=== PATIENT | male | born 1935 | race Caucasian/White ===

== ENCOUNTER → 2017-05-01 | Outpatient (CLI) | payer MEDICARE ==
[~2017-05-01] MED LIST: ACETAMINOPHEN W1 TA6 PO; ANTIVERT 12.512.5 MG PO; ASPIRIN E.C. 8181 MG PO; ATIVAN 1MG T1 MG/TAB PO; ATIVAN1 MG PO; B-121000 MCG PO; BUSPAR5 MG PO; BUSPIRONE5 MG PO; CLARITIN 1010 MG/TAB PO; FELDENE20 MG PO; FLOMAX0.4 MG PO; FLOVENT DI50 MCG/Act IH; HCTZ 25MG TAB25 MG PO; HCTZ 25MG25 MG PO; K-DUR20 MEQ PO; MEDROL 4MG DOSPA4 MG PO; MIRAPEX0.25 MG PO; MIRAPEX0.5 MG PO; MOTRIN 400400 MG/TAB PO; MULTI VITAMINS1 TAB PO; RYZOLT200 MG PO; TENORMIN 2525 MG/TAB PO; TYLENOL 500MG500 MG PO; ULTRAM 50MG TAB50 MG PO; XARELTO10 MG PO
== END ==
LOC: COL.RAD 08:13
DX: R13.12 Dysphagia, oropharyngeal phase (principal)
CPT/HCPCS: G8996-GN; G8997-GN; G8998-GN

== ENCOUNTER 2017-06-11 16:22 | Observation (INO) | payer MEDICARE ==
[~2017-06-11] VITALS: Ht 160 cm; Wt 122.7 kg
[~2017-06-11 16:22] MED LIST changes: -B-121000 MCG PO; -MOTRIN 400400 MG/TAB PO; -MULTI VITAMINS1 TAB PO
[2017-06-11 16:58] LABS: BASO % 0.4 % (0.0-2.0); EOS # 0.3 (0.0-0.7); EOS % 3.5 % (0-4.0); GRAN # 5.2 (1.4-6.5); GRAN % 70.8 % (42.2-75.2); HEMATOCRIT 40.4 % (42.0-52.0); HEMOGLOBIN 13.5 g/dl (13.5-18.0); LYMPH # 1.1 (1.2-3.4); LYMPH % 14.3 % (20.0-51.0); MEAN CELL VOLUME 98 fl (80.0-100.0); MEAN CORPUSCULAR HEMOGLOBIN 33 pg (27.0-31.0); MEAN CORPUSCULAR HGB CONC 33 g/dl (33.0-37.0); MEAN PLATELET VOLUME 10.8 fl (7.4-10.4); MONO # 0.8 (0.1-0.6); MONO % 10.5 % (1.7-9.3); PLATELET COUNT 139 K/mm3 (130-400); RED BLOOD COUNT 4.11 M/mm3 (4.20-5.60); WHITE BLOOD COUNT 7.4 K/mm3 (4.8-10.8)
[2017-06-11 17:09] LABS: ADJUSTED CALCIUM 9.1 mg/dL (8.4-10.2); ALANINE AMINOTRANSFERASE 31 U/L (21-72); ALBUMIN 3.6 gm/dL (3.5-5.0); ALKALINE PHOSPHATASE 132 U/L (50-136); ANION GAP 7 mmol/L (7-16); BILIRUBIN,TOTAL 1.2 mg/dL (0.0-1.0); BLOOD UREA NITROGEN 20 mg/dL (9-20); CALCIUM 8.8 mg/dL (8.4-10.2); CARBON DIOXIDE 25 mmol/L (22-30); CHLORIDE 103 mmol/L (98-107); CREATININE, serum 0.79 mg/dL (0.66-1.25); GLUCOSE 102 mg/dL (74-106); POTASSIUM 3.6 mmol/L (3.4-5.0); SODIUM 135 mmol/L (137-145); TOTAL PROTEIN 6.4 gm/dL (6.4-8.2)
[2017-06-11 17:20] LABS: B-TYPE NATRIURETIC PEPTIDE 1410 pg/mL (0-450)
[2017-06-11 17:21] LABS: TROPONIN-I < 0.012 ng/mL (0.000-0.034)
[2017-06-11] MEDS ORDERED: MOTRIN 400400 MG/TAB PO (18:23)
[2017-06-11] MEDS ORDERED: MULTI VITAMINS1 TAB PO (18:24)
[2017-06-11] MEDS ORDERED: B-121000 MCG PO (18:25)
[2017-06-11 18:31] LABS: INR 1.3 (0.8-3.0); PROTHROMBIN TIME 14.3 SECONDS (9.7-12.8)
[2017-06-11 19:18] LABS: MAGNESIUM 1.9 mg/dL (1.6-2.3)
[2017-06-11 19:59] LABS: CREATINE KINASE 227 U/L (55-170)
[2017-06-11 20:16] VITALS: BP 159/87; PULSE 73; TEMP 97.7
[2017-06-12 00:22] VITALS: BP 148/86; PULSE 88; TEMP 98.1
[2017-06-12 03:21] VITALS: BP 143/79; PULSE 81; TEMP 98
[2017-06-12 07:26] LABS: BASO % 0.4 % (0.0-2.0); EOS # 0.3 (0.0-0.7); EOS % 3.1 % (0-4.0); GRAN # 6.7 (1.4-6.5); GRAN % 74.7 % (42.2-75.2); HEMATOCRIT 43.5 % (42.0-52.0); HEMOGLOBIN 14.4 g/dl (13.5-18.0); LYMPH # 1.2 (1.2-3.4); LYMPH % 12.9 % (20.0-51.0); MEAN CELL VOLUME 99 fl (80.0-100.0); MEAN CORPUSCULAR HEMOGLOBIN 33 pg (27.0-31.0); MEAN CORPUSCULAR HGB CONC 33 g/dl (33.0-37.0); MEAN PLATELET VOLUME 11.5 fl (7.4-10.4); MONO # 0.8 (0.1-0.6); MONO % 8.5 % (1.7-9.3); PLATELET COUNT 155 K/mm3 (130-400); RED BLOOD COUNT 4.41 M/mm3 (4.20-5.60)
[2017-06-12 07:41] LABS: CALCIUM 9.1 mg/dL (8.4-10.2); CREATININE, serum 0.76 mg/dL (0.66-1.25)
[2017-06-12 07:42] VITALS: BP 151/81; PULSE 90; TEMP 98.1
[2017-06-12 10:05] LABS: PH 6 (5-8); SQUAMOUS EPITHELIAL 0-2 /hpf; URINE APPEARANCE Clear; URINE BACTERIA Rare /hpf; URINE BILIRUBIN Negative (NEGATIVE); URINE BLOOD 1+ (NEGATIVE); URINE COLOR Yellow; URINE GLUCOSE Negative (NEGATIVE); URINE KETONE Negative (NEGATIVE); URINE UROBILINOGEN Negative (NEGATIVE); URINE WBC 0-2 /hpf
[2017-06-12 11:59] VITALS: BP 153/74; PULSE 68; TEMP 97.9
== END 2017-06-12 15:03 | disposition home or self-care (01) ==
LOC: COL.ER 16:22 → MEDICAL 18:16
PROVIDERS: Emergency Medicine; Nurse Practitioner Family
DX: R55 Syncope and collapse (principal); R06.00 Dyspnea, unspecified; I48.2 Chronic atrial fibrillation; Z79.01 Long term (current) use of anticoagulants; I10 Essential (primary) hypertension; Z96.651 Presence of right artificial knee joint; R20.0 Anesthesia of skin; G62.9 Polyneuropathy, unspecified; M19.90 Unspecified osteoarthritis, unspecified site; K57.90 Diverticulosis of intestine, part unspecified, without perforation or abscess without bleeding; N40.0 Benign prostatic hyperplasia without lower urinary tract symptoms; M48.00 Spinal stenosis, site unspecified; G89.29 Other chronic pain; M54.9 Dorsalgia, unspecified; F41.9 Anxiety disorder, unspecified; G25.81 Restless legs syndrome; F41.0 Panic disorder [episodic paroxysmal anxiety]; F40.240 Claustrophobia
CPT/HCPCS: G0378; J7030; J7040

== ENCOUNTER 2017-06-19 08:45 | Outpatient (RCR) | payer MEDICARE ==
[~2017-06-19 08:45] MED LIST changes: +B-121000 MCG PO; +MOTRIN 400400 MG/TAB PO; +MULTI VITAMINS1 TAB PO
== END 2017-07-23 | disposition home or self-care (01) ==
LOC: WSST
DX: R13.12 Dysphagia, oropharyngeal phase (principal)
CPT/HCPCS: G8996-GN; G8997-GN

== ENCOUNTER → 2018-02-09 | Outpatient (REF) ==
[~2018-02-09] MED LIST changes: +BENADRYL25 M2 PO; +CEPHALEXIN500 M1 PO; +COLACE 100100 MG/CAP PO; +PRINIVIL10 MG PO; +TYLENOL W/COD1 UDTAB PO
[2018-02-09 19:38] LABS: COLLECTION METHOD RANDOM VOIDED
[2018-02-09 19:48] LABS: MUCOUS Present /lpf; PH 6 (5-8); SQUAMOUS EPITHELIAL None Seen /hpf; URINE APPEARANCE Cloudy; URINE BILIRUBIN Negative (NEGATIVE); URINE BLOOD 3+ (NEGATIVE); URINE COLOR Amber; URINE GLUCOSE Negative (NEGATIVE); URINE KETONE Negative (NEGATIVE); URINE LEUKOCYTE ESTERASE Negative (NEGATIVE); URINE NITRATE Negative (NEGATIVE); URINE PROTEIN(semi-quant) 2+ (NEGATIVE); URINE RBC >50 /hpf; URINE UROBILINOGEN Negative (NEGATIVE); URINE WBC None Seen /hpf
[2018-02-09 19:49] LABS: URINE BACTERIA Occasional /hpf
== END ==
LOC: ZCOL.LAB 19:37
PROVIDERS: Family Medicine
DX: Z01.89 Encounter for other specified special examinations (principal)

== ENCOUNTER 2018-02-13 06:21 | Observation (INO) | payer MEDICARE ==
[2018-02-13 06:36] LABS: BASO % 0.4 % (0.0-2.0); EOS # 0.1 (0.0-0.7); EOS % 2.9 % (0-4.0); GRAN # 3.1 (1.4-6.5); LYMPH % 21.2 % (20.0-51.0); MEAN CELL VOLUME 106 fl (80.0-100.0); MEAN CORPUSCULAR HGB CONC 31 g/dl (33.0-37.0); MEAN PLATELET VOLUME 11.4 fl (7.4-10.4); MONO # 0.6 (0.1-0.6); MONO % 11.5 % (1.7-9.3); PLATELET COUNT 102 K/mm3 (130-400); REDCELL DISTRIBUTION WIDTH-CV 18.7 % (11.5-14.5)
[2018-02-13 06:37] LABS: HEMATOCRIT 29.7 % (42.0-52.0); HEMOGLOBIN 9.3 g/dl (13.5-18.0); MEAN CORPUSCULAR HEMOGLOBIN 33 pg (27.0-31.0)
[2018-02-13 06:41] LABS: ALANINE AMINOTRANSFERASE 27 U/L (21-72); ALBUMIN 2.8 gm/dL (3.5-5.0); ALKALINE PHOSPHATASE 155 U/L (50-136); ANION GAP 9 mmol/L (7-16); AST,SGOT 23 U/L (15-37); BILIRUBIN,TOTAL 1.2 mg/dL (0.0-1.0); BLOOD UREA NITROGEN 14 mg/dL (9-20); CALCIUM 8.5 mg/dL (8.4-10.2); CARBON DIOXIDE 28 mmol/L (22-30); CHLORIDE 106 mmol/L (98-107); CREATININE, serum 0.75 mg/dL (0.66-1.25); GLUCOSE 111 mg/dL (74-106); POTASSIUM 3.9 mmol/L (3.4-5.0); SODIUM 143 mmol/L (137-145); TOTAL PROTEIN 5.9 gm/dL (6.4-8.2)
[2018-02-13 06:43] LABS: INR 1.4 (0.8-3.0); PROTHROMBIN TIME 16.3 SECONDS (9.7-12.8)
[2018-02-13 07:53] LABS: TROPONIN-I 0.017 ng/mL (0.000-0.034)
[2018-02-13 09:45] LABS: COLLECTION METHOD CLEAN CATCH
[2018-02-13 09:53] LABS: MUCOUS Present /lpf; PH 5 (5-8); SQUAMOUS EPITHELIAL 0-2 /hpf; URINE APPEARANCE Clear; URINE BACTERIA None Seen /hpf; URINE BILIRUBIN Negative (NEGATIVE); URINE BLOOD 1+ (NEGATIVE); URINE COLOR Yellow; URINE GLUCOSE Negative (NEGATIVE); URINE KETONE Negative (NEGATIVE); URINE LEUKOCYTE ESTERASE Negative (NEGATIVE); URINE NITRATE Negative (NEGATIVE); URINE PROTEIN(semi-quant) Negative (NEGATIVE); URINE UROBILINOGEN Negative (NEGATIVE)
[2018-02-13] MEDS ORDERED: TYLENOL SU650 MG/SUP RC (10:25)
[2018-02-13] MEDS ORDERED: LIQUIFILM TEARS15 ML OU (10:25)
[2018-02-13] MEDS ORDERED: DULCOLAX S10 MG/SUPP RC (10:27)
[2018-02-13] MEDS ORDERED: BENADRYL25 M2 PO (10:27)
[2018-02-13] MEDS ORDERED: IMODIUM 2MG CAPS2 MG PO (10:28)
[2018-02-13] MEDS ORDERED: FLONASEALLERGY NS (10:28)
[2018-02-13] MEDS ORDERED: IPRATROPIUM BROM3 M1 IH (10:29)
[2018-02-13] MEDS ORDERED: MILK OF MA400 MG/52 PO (10:29)
[2018-02-13] MEDS ORDERED: ALMACONE 360 M360 ML PO (10:30)
[2018-02-13] MEDS ORDERED: ROXICODONE 55 MG/TAB PO ×2 (10:30→10:31)
[2018-02-13] MEDS ORDERED: FELDENE20 MG PO (10:31)
[2018-02-13] MEDS ORDERED: MIRAPEX0.5 MG PO (10:32)
[2018-02-13] MEDS ORDERED: PROBIOTIC ACID1 EAC3 PO (10:32)
[2018-02-13] MEDS ORDERED: XARELTO10 MG PO (10:33)
[2018-02-13] MEDS ORDERED: ROBAXIN 50500 MG/TAB PO (10:34)
[2018-02-13] MEDS ORDERED: ULTRAM 50MG TAB50 MG PO (10:34)
[2018-02-13 12:32] VITALS: BP 106/90; PULSE 59; TEMP 98.5
[2018-02-13 15:52] VITALS: BP 156/87; PULSE 114; TEMP 98.7
[2018-02-13 19:50] VITALS: BP 129/80; PULSE 63; TEMP 98
[2018-02-14] VITALS (11 sets, daily range): BP systolic 84–112; BP diastolic 34–75; PULSE 80–92; TEMP 97.4–98.7
[2018-02-14 09:22] LABS: BASO % 0.4 % (0.0-2.0); EOS # 0.3 (0.0-0.7); EOS % 5.6 % (0-4.0); GRAN # 3.8 (1.4-6.5); GRAN % 68.2 % (42.2-75.2); LYMPH # 0.8 (1.2-3.4); LYMPH % 14.2 % (20.0-51.0); MEAN CELL VOLUME 109 fl (80.0-100.0); MEAN CORPUSCULAR HGB CONC 31 g/dl (33.0-37.0); MEAN PLATELET VOLUME 11.3 fl (7.4-10.4); MONO # 0.6 (0.1-0.6); MONO % 11.1 % (1.7-9.3); PLATELET COUNT 107 K/mm3 (130-400); RED BLOOD COUNT 2.69 M/mm3 (4.20-5.60); REDCELL DISTRIBUTION WIDTH-CV 18.6 % (11.5-14.5)
[2018-02-14 09:27] LABS: CREATININE, serum 0.91 mg/dL (0.66-1.25); POTASSIUM 3.7 mmol/L (3.4-5.0)
[2018-02-14 09:28] LABS: HEMATOCRIT 29.2 % (42.0-52.0); MEAN CORPUSCULAR HEMOGLOBIN 33 pg (27.0-31.0)
[2018-02-15 00:16] VITALS: BP 96/57; PULSE 87; TEMP 98.6
[2018-02-15 06:30] VITALS: BP 132/87; PULSE 87; TEMP 98.6
[2018-02-15 06:58] LABS: BASO % 0.2 % (0.0-2.0); EOS # 0.3 (0.0-0.7); EOS % 5.5 % (0-4.0); GRAN # 3.1 (1.4-6.5); GRAN % 57.9 % (42.2-75.2); LYMPH # 1.2 (1.2-3.4); LYMPH % 23.3 % (20.0-51.0); MEAN CELL VOLUME 106 fl (80.0-100.0); MEAN CORPUSCULAR HGB CONC 32 g/dl (33.0-37.0); MEAN PLATELET VOLUME 10.9 fl (7.4-10.4); MONO # 0.7 (0.1-0.6); MONO % 12.7 % (1.7-9.3); PLATELET COUNT 102 K/mm3 (130-400); RED BLOOD COUNT 2.66 M/mm3 (4.20-5.60); REDCELL DISTRIBUTION WIDTH-CV 18.6 % (11.5-14.5)
[2018-02-15 07:07] LABS: HEMATOCRIT 28.2 % (42.0-52.0); HEMOGLOBIN 8.9 g/dl (13.5-18.0); MEAN CORPUSCULAR HEMOGLOBIN 33 pg (27.0-31.0)
[2018-02-15 07:18] LABS: CALCIUM 8.2 mg/dL (8.4-10.2); CREATININE, serum 0.78 mg/dL (0.66-1.25); POTASSIUM 3.6 mmol/L (3.4-5.0)
[2018-02-15 07:40] VITALS: BP 157/85; PULSE 63; TEMP 97.6
[2018-02-15] MEDS ORDERED: TYLENOL W/COD1 UDTAB PO (10:37)
[2018-02-15] MEDS ORDERED: ATIVAN 1MG T1 MG/TAB PO (10:38)
[2018-02-15] MEDS ORDERED: ULTRAM 50MG TAB50 MG PO (10:38)
[2018-02-15] MEDS ORDERED: LASIX 40MG TABL40 MG PO (10:38)
== END 2018-02-15 11:40 ==
LOC: COL.ER 06:21 → MEDICAL 07:56
PROVIDERS: Emergency Medicine; Physician Assistant
DX: I11.0 Hypertensive heart disease with heart failure (principal); I50.31 Acute diastolic (congestive) heart failure; S91.311A Laceration without foreign body, right foot, initial encounter; D64.9 Anemia, unspecified; I48.91 Unspecified atrial fibrillation; D69.6 Thrombocytopenia, unspecified; E46 Unspecified protein-calorie malnutrition; M19.90 Unspecified osteoarthritis, unspecified site; G89.29 Other chronic pain; G25.81 Restless legs syndrome; I27.20 Pulmonary hypertension, unspecified; Z79.51 Long term (current) use of inhaled steroids; Z79.01 Long term (current) use of anticoagulants; Z96.653 Presence of artificial knee joint, bilateral; Z90.13 Acquired absence of bilateral breasts and nipples; Z88.0 Allergy status to penicillin; Z88.8 Allergy status to other drugs, medicaments and biological substances; Z86.59 Personal history of other mental and behavioral disorders
CPT/HCPCS: G0378; G8978-GP; G8979-GP; G8987-GO; G8988-GO; J1644; J1940

== ENCOUNTER 2018-02-20 08:57 | Outpatient (CLI) | payer MEDICARE ==
[~2018-02-20] VITALS: Ht 160 cm; Wt 106.0 kg
[~2018-02-20 08:57] MED LIST changes: +ALMACONE 360 M360 ML PO; +DULCOLAX S10 MG/SUPP RC; +FLONASEALLERGY NS; +IMODIUM 2MG CAPS2 MG PO; +IPRATROPIUM BROM3 M1 IH; +LASIX 40MG TABL40 MG PO; +LIQUIFILM TEARS15 ML OU; +MILK OF MA400 MG/52 PO; +PROBIOTIC ACID1 EAC3 PO; +ROBAXIN 50500 MG/TAB PO; +ROXICODONE 55 MG/TAB PO; +TYLENOL SU650 MG/SUP RC
== END 2018-02-20 09:29 | disposition home or self-care (01) ==
LOC: EUO 08:57
DX: Z45.2 Encounter for adjustment and management of vascular access device (principal)

== ENCOUNTER → 2018-02-28 | Outpatient (REF) | LOC: ZCOL.LAB 09:08 | DX: I50.9 Heart failure, unspecified (principal) ==

== ENCOUNTER 2018-05-04 01:22 | Emergency (ER) | payer MEDICARE ==
[~2018-05-04] VITALS: Ht 160 cm; Wt 106.8 kg
[2018-05-04 01:42] LABS: BASO % 0.1 % (0.0-2.0); EOS % 0.2 % (0-4.0); GRAN # 7.7 (1.4-6.5); GRAN % 82.8 % (42.2-75.2); HEMATOCRIT 12.1 % (42.0-52.0); LYMPH # 0.9 (1.2-3.4); LYMPH % 9.8 % (20.0-51.0); MEAN CELL VOLUME 91 fl (80.0-100.0); MEAN CORPUSCULAR HEMOGLOBIN 28 pg (27.0-31.0); MEAN CORPUSCULAR HGB CONC 31 g/dl (33.0-37.0); MONO # 0.6 (0.1-0.6); MONO % 6.1 % (1.7-9.3); PLATELET COUNT 142 K/mm3 (130-400); RED BLOOD COUNT 1.33 M/mm3 (4.20-5.60)
[2018-05-04 01:43] LABS: HEMOGLOBIN 3.7 g/dl (13.5-18.0)
[2018-05-04 01:44] LABS: INR 2.4 (0.8-3.0); PROTHROMBIN TIME 27.8 SECONDS (9.7-12.8)
[2018-05-04 01:49] LABS: ALANINE AMINOTRANSFERASE 23 U/L (21-72); ALBUMIN 2.5 gm/dL (3.5-5.0); ALKALINE PHOSPHATASE 59 U/L (50-136); ANION GAP 12 mmol/L (7-16); AST,SGOT 16 U/L (15-37); BILIRUBIN,TOTAL 0.2 mg/dL (0.0-1.0); BLOOD UREA NITROGEN 94 mg/dL (9-20); CALCIUM 7.6 mg/dL (8.4-10.2); CARBON DIOXIDE 22 mmol/L (22-30); CHLORIDE 104 mmol/L (98-107); CREATININE, serum 1.36 mg/dL (0.66-1.25); GLUCOSE 117 mg/dL (74-106); POTASSIUM 5.2 mmol/L (3.4-5.0); SODIUM 138 mmol/L (137-145)
[2018-05-04] MEDS ORDERED: ATIVAN 0.50.5 MG/TAB PO (01:57)
[2018-05-04] MEDS ORDERED: DEBROX OT (02:00)
[2018-05-04] MEDS ORDERED: MIRALAX PA17 GM/Dose PO (02:04)
[2018-05-04 02:09] LABS: TROPONIN-I < 0.012 ng/mL (0.000-0.034)
[2018-05-04 03:12] VITALS: TEMP 97
[2018-05-04] MEDS ORDERED: MIRAPEX 1MG PO (03:31)
[2018-05-04 03:45] VITALS: BP 123/64; PULSE 111
[2018-05-04] MEDS ORDERED: REMERON30 MG PO (04:09)
[2018-05-04] MEDS ORDERED: TYLENOL 325MG325 MG PO (04:11)
== END 2018-05-04 04:00 | disposition short-term general hospital (02) ==
LOC: COL.ER 01:22
PROVIDERS: Physician Assistant
DX: K92.2 Gastrointestinal hemorrhage, unspecified (principal); D64.9 Anemia, unspecified; I10 Essential (primary) hypertension; I48.91 Unspecified atrial fibrillation; I50.9 Heart failure, unspecified; Z98.890 Other specified postprocedural states; Z79.01 Long term (current) use of anticoagulants; Z79.51 Long term (current) use of inhaled steroids
CPT/HCPCS: C9113; J2060; J2354; J2765; J3010; J7030; P9016

== ENCOUNTER → 2019-01-07 | Outpatient (RCR) | payer MEDICARE ==
[~2019-01-07] MED LIST changes: +ATIVAN 0.50.5 MG/TAB PO; +DEBROX OT; +MIRALAX PA17 GM/Dose PO; +MIRAPEX 1MG PO; +REMERON30 MG PO; +TYLENOL 325MG325 MG PO
== END | disposition home or self-care (01) ==
LOC: WSPT
DX: M46.44 Discitis, unspecified, thoracic region (principal); M15.0 Primary generalized (osteo)arthritis; R29.898 Other symptoms and signs involving the musculoskeletal system

== ENCOUNTER 2019-01-16 09:30 | Outpatient (RCR) | payer MEDICARE | END 2019-02-03 12:56 | LOC: WSPT 09:30 | DX: M46.44 Discitis, unspecified, thoracic region (principal) ==